=== PATIENT | male | born 1985 | race Caucasian/White ===

== ENCOUNTER 2017-04-09 14:31 | Emergency (ER) | payer MEDICARE, OTHER ==
[~2017-04-09 14:31] MED LIST: AMOXICILLIN PO; AMOXICILLIN500 M1 PO; AMOXIL500 MG PO; BACTRIM DS TABL1 TAB PO; BENTYL10 MG PO; BUSPAR PO; DEPAKOTE PO; LORTAB 7.5-5001 TAB PO; NEURONTIN PO; PEPCID AC20 M2 PO; PRILOSEC40 MG PO; VICODIN 5/1 TAB 5/50 PO; VICODIN 5/500 T1 TAB PO; VOLTAREN75 MG PO; ZOFRAN PO; ZOLOFT50 MG PO; ZYPREXA PO
== END 2017-04-09 18:30 | disposition home or self-care (01) ==
LOC: CED 14:31
DX: K02.9 Dental caries, unspecified (principal); F17.210 Nicotine dependence, cigarettes, uncomplicated; Z88.5 Allergy status to narcotic agent; Z88.6 Allergy status to analgesic agent
CPT/HCPCS: 96372; 99283; J1885

== ENCOUNTER 2017-06-01 12:14 | Emergency (ER) | payer MEDICARE, OTHER ==
--- NOTE | ~2017-06-01 | CR63 ---
[facility] A Service of [facility] & [facility] RADIOLOGY TEXT RESULTS PATIENT: ANA GALVIN LOCATION: [facility] : 81 UNIT #: [id number] AGE: [address]: Siomara Slade SEX: M ORDER DR: [id number] [facility] [address] [place], [place] [address] [id number] E MR#: [id number] Acc #: [id number] NAME: ANA GALVIN : 1985 SEX: M STUDY DATE/TIME: 06/01/2017 UNIT: [facility] ROOM: STUDY DESCRIPTION: CR Chest 2 View Attending Physician: Siomara Slade P.A.-C. Ordering Physician: Siomara Slade P.A.-C. Primary Care Physician: No Primary Care Physician MEDICAL IMAGING REPORT This report is preliminary unless electronic signature is present EXAM Chest 2 views 06/01/2017 1258 hours HISTORY 31-year-old man complaining of cough and congestion with chest pain for 2 weeks. COMPARISON 12/25/2008 FINDINGS Upright PA and lateral views of the chest demonstrate normal cardiac, mediastinal and hilar contours. The lungs are hyperinflated, but clear. There are no effusions. IMPRESSION Pulmonary hyperinflation with clear lungs. No effusions seen. Dictated by... Jaida Green M.D. THIS IS AN ELECTRONICALLY VERIFIED REPORT Jaida Green M.D. at 06/02/2017 8:53 AM Sreedhar TD: 06/01/2017 19:11 JOB #: [id number] MEDICAL IMAGING REPORT Page 1 of 1 COPY
[2017-06-01 13:18] LABS: URINE SOURCE CLEAN CATCH
[2017-06-01 13:22] LABS: URINE APPEARANCE CLEAR; URINE BILIRUBIN NEG (NEG); URINE BLOOD NEG (NEG); URINE COLOR YELLOW; URINE GLUCOSE NEG (NEG); URINE KETONE NEG (NEG); URINE LEUKOCYTE ESTERASE NEG (NEG); URINE NITRATE NEG (NEG); URINE PROTEIN NEG (NEG); URINE SPECIFIC GRAVITY 1.005 (1.003-1.035); URINE UROBILINOGEN 0.2 MG/DL (NEG)
[2017-06-01 13:25] LABS: CULTURE INDICATED? NO
[2017-06-05 12:12] LABS: CHLAMYDIA TRACH Not Detected (Not Detected); N GONOR Not Detected (Not Detected)
== END 2017-06-01 13:50 | disposition home or self-care (01) ==
LOC: CED 12:14 → CFTX 12:14
PROVIDERS: Physician Assistant
DX: B35.9 Dermatophytosis, unspecified (principal); M77.9 Enthesopathy, unspecified; F17.210 Nicotine dependence, cigarettes, uncomplicated; F31.9 Bipolar disorder, unspecified; Z88.5 Allergy status to narcotic agent
CPT/HCPCS: 29125; 71020; 81003; 87491; 87591; 94640; 99283